=== PATIENT | female | born 1955 | race Caucasian/White ===

== ENCOUNTER 2019-07-29 21:36 | Emergency (ER) | payer BC ==
[~2019-07-29] VITALS: Ht 157.5 cm; Wt 68.2 kg
[~2019-07-29 21:36] MED LIST: ASPI81TA30 PO; CHOL2000 PO; CYAN100019 PO; FENO145T26 PO; OMEP20TA5 PO
[2019-07-29] MEDS ORDERED: normal saline 1000ml 1,000 ML IVB ONE (21:47)
[2019-07-29] MEDS ORDERED: ondansetron/PF 4mg/2ml inj IV ONE (22:05)
[2019-07-29 22:23] LABS: BASOPHILS % (AUTO) 0.1 % (0-1); EOSINOPHILS # (AUTO) 0.1 X10'3 (0-0.9); EOSINOPHILS % (AUTO) 0.6 % (0-6); HEMATOCRIT 48.6 % (35.0-45.0); HEMOGLOBIN 16.6 g/dl (12.0-16.0); LYMPHOCYTES # (AUTO) 0.5 X10'3 (1.1-4.8); LYMPHOCYTES % (AUTO) 4.4 % (21-51); MEAN CORPUSCULAR HEMOGLOBIN 31.8 PG (27.0-31.0); MEAN CORPUSCULAR HGB CONC 34.2 g/dL (33.0-36.5); MEAN CORPUSCULAR VOLUME 93.1 FL (78-98); MEAN PLATELET VOLUME 8.8 FL (7.4-10.4); MONOCYTES # (AUTO) 0.4 X10'3 (0-0.9); MONOCYTES % (AUTO) 3.6 % (2-12); NEUTROPHILS # (AUTO) 9.6 X10'3 (1.8-7.7); NEUTROPHILS % (AUTO) 91.3 % (42-75); PLATELET COUNT 281 X10'3 (140-440); RED BLOOD COUNT 5.23 X10'6 (4.20-5.60); RED CELL DISTRIBUTION WIDTH 12.8 % (11.5-14.5); WHITE BLOOD COUNT 10.6 X10'3 (4.5-11.0)
[2019-07-29 22:31] LABS: PARTIAL THROMBOPLASTIN TIME 26 SECONDS (22-32)
[2019-07-29 22:36] LABS: ALANINE AMINOTRANSFERASE 49 U/L (12-78); ALBUMIN 4.8 G/DL (3.4-5.0); ALBUMIN/GLOBULIN RATIO 1.3 (1.1-1.5); ALKALINE PHOSPHATASE 96 IU/L (46-116); ANION GAP 11 (8-16); ASPARTATE AMINO TRANSFERASE 31 U/L (10-37); BILIRUBIN,TOTAL 1.1 MG/DL (0.1-1.0); BLOOD UREA NITROGEN 14 MG/DL (7-18); BUN/CREATININE RATIO 12.3 (6.6-38.0); CALCIUM 10.6 MG/DL (8.5-10.1); CHLORIDE 105 MMOL/L (99-107); CREATININE 1.14 MG/DL (0.40-0.90); GLUCOSE 123 MG/DL (70-104); POTASSIUM 3.4 MMOL/L (3.5-5.1); SODIUM 144 MMOL/L (135-145); TOTAL CARBON DIOXIDE 27.6 MMOL/L (24-32); TOTAL PROTEIN 8.4 G/DL (6.4-8.2); eGFR 48 ML/MIN
[2019-07-29] MEDS ORDERED: acetaminophen 325mg tablet PO ONE (23:00)
[2019-07-29 23:25] LABS: TROPONIN I < 0.04 NG/ML (0.0-0.05)
[2019-07-29] MEDS ORDERED: proCHLORperazine 10 MG/2 ml inj IV ONE (23:35)
[2019-07-29] MEDS ORDERED: mag hydrox/Alum hydrox/simeth 30ml oral suspension PO ONE (23:35)
[2019-07-30 00:08] LABS: COLOR,URINE YELLOW (Yellow); GLUCOSE, URINE NEGATIVE (Neg); KETONES,URINE NEGATIVE (Neg); LEUKOCYTE ESTERASE ,URINE SMALL (Neg); NITRITES, URINE NEGATIVE (Neg); OCCULT BLOOD,URINE TRACE-LYSED (Neg); PH,URINE >=9.0 (4.8-8.0); PROTEIN,URINE NEGATIVE (Neg); UROBILINOGEN,URINE 0.2 E.U/dL (0.2-1.0)
[2019-07-30 00:09] LABS: CLARITY,URINE SLIGHTLY CLOUDY (Clear); UA COLLECTION TYPE CLN CATCH MIDSTREAM
--- NOTE | 2019-07-30 00:14 | NUR ---
Pt. is refusing to allow [employer] Programmer to draw blood. Per Dr[employer] Programmer, Pt. verbally abusive during draw and told the lab to stop. Dr[employer] Programmer unable to draw enough blood for ordered labs.
[2019-07-30] MEDS ORDERED: ONDA8TAB6 PO (00:20)
[2019-07-30 00:22] LABS: BACTERIA,URINE FEW /HPF (Neg); MUCUS STRANDS FEW /LPF (Neg); RBC,URINE 0-2 /HPF (0-2); SQUAMOUS EPITHELIAL CELL,UR FEW /LPF (FEW); WBC CLUMPS,URINE FEW /HPF (NEGATIVE)
[2019-07-30 00:38] VITALS: BP 115/64
== END 2019-07-30 00:34 | disposition home or self-care (01) ==
LOC: ER 21:36
DX: K52.9 Noninfective gastroenteritis and colitis, unspecified (principal); R50.9 Fever, unspecified; Z88.6 Allergy status to analgesic agent; Z79.82 Long term (current) use of aspirin; Z79.899 Other long term (current) drug therapy
CPT/HCPCS: 36415; 71045; 80053; 81001; 83605; 84145; 84484; 85025; 85610; 85730; 87040; 87088; 96361; 96374; 96375; 99284; J0780; J2405; J7030; 81003

== ENCOUNTER 2022-02-03 19:25 | Emergency (ER) | payer BC ==
[~2022-02-03] VITALS: Ht 160 cm; Wt 64.5 kg
[~2022-02-03 19:25] MED LIST changes: +OMEP20TA43 PO; -OMEP20TA5 PO; +ONDA8TAB6 PO
[2022-02-03 20:19] LABS: BASOPHILS % (AUTO) 1.6 % (0-1); EOSINOPHILS % (AUTO) 0.1 % (0-6); HEMATOCRIT 42.3 % (35.0-45.0); HEMOGLOBIN 14.4 g/dl (12.0-16.0); LYMPHOCYTES # (AUTO) 0.9 X10'3 (1.1-4.8); LYMPHOCYTES % (AUTO) 38.1 % (21-51); MEAN CORPUSCULAR HEMOGLOBIN 32.2 PG (27.0-31.0); MEAN CORPUSCULAR HGB CONC 34.1 g/dL (33.0-36.5); MEAN CORPUSCULAR VOLUME 94.3 FL (78-98); MEAN PLATELET VOLUME 8.6 FL (7.4-10.4); MONOCYTES # (AUTO) 0.2 X10'3 (0-0.9); MONOCYTES % (AUTO) 8.6 % (2-12); NEUTROPHILS # (AUTO) 1.2 X10'3 (1.8-7.7); NEUTROPHILS % (AUTO) 51.6 % (42-75); PLATELET COUNT 168 X10'3 (140-440); RED BLOOD COUNT 4.49 X10'6 (4.20-5.60); RED CELL DISTRIBUTION WIDTH 12.8 % (11.5-14.5); WHITE BLOOD COUNT 2.4 X10'3 (4.5-11.0)
[2022-02-03 20:46] LABS: ALANINE AMINOTRANSFERASE 120 U/L (12-78); ALBUMIN 3.7 G/DL (3.4-5.0); ALBUMIN/GLOBULIN RATIO 1.1 (1.1-1.5); ALKALINE PHOSPHATASE 43 IU/L (46-116); ANION GAP 8 (8-16); ASPARTATE AMINO TRANSFERASE 104 U/L (10-37); BILIRUBIN,TOTAL 0.4 MG/DL (0.1-1.0); BLOOD UREA NITROGEN 8 MG/DL (7-18); BUN/CREATININE RATIO 9.2 (6.6-38.0); CALCIUM 8.4 MG/DL (8.5-10.1); CHLORIDE 108 MMOL/L (99-107); CREATININE 0.87 MG/DL (0.40-0.90); GLUCOSE 98 MG/DL (70-104); SODIUM 143 MMOL/L (135-145); TOTAL CARBON DIOXIDE 26.7 MMOL/L (24-32); TOTAL PROTEIN 7.1 G/DL (6.4-8.2); eGFR 66 ML/MIN
[2022-02-03] MEDS ORDERED: POTASSIUM BICARB 20meq eff tab 20 MEQ TABLET.EFF PO ONE (20:50)
[2022-02-03 20:55] LABS: D-DIMER 0.34 MG/L FEU (0-0.50)
[2022-02-03 23:00] VITALS: BP 116/72
== END 2022-02-03 23:05 | disposition home or self-care (01) ==
LOC: ER 19:25
DX: U07.1 COVID-19 (principal); Z88.1 Allergy status to other antibiotic agents; Z88.6 Allergy status to analgesic agent; Z79.899 Other long term (current) drug therapy; Z79.82 Long term (current) use of aspirin
CPT/HCPCS: 36415; 71045; 80053; 83880; 84484; 85025; 85379; 93005; 99285